=== PATIENT | male | born 1980 | race Caucasian/White ===

== ENCOUNTER 2018-08-27 10:29 | Emergency (ER) | payer MEDICAID ==
[~2018-08-27] VITALS: Wt 63.4 kg
[2018-08-27] MEDS ORDERED: ONDANSETRON 4 MG INJ IV STA (11:00)
[2018-08-27] MEDS ORDERED: KETOROLAC 15 MG INJ IV STA (11:00)
--- NOTE | 2018-08-27 11:06 | ERD ---
ER Documentation Chief Complaint Chief Complaint RT SIDED AP X 1 HOUR WITH N/V HPI 37-year-old male is complaining of right flank pain that radiates to the right lower quadrant times 3 hours. Patient is not reporting right testicular pain. Patient states that he is feeling nauseous, but has not vomited. He had not be able to urinate for the last 3 hours. Denies history of kidney stones. Denies fever or chills. ROS All systems reviewed and are negative except as per history of present illness. Medications Home Meds Active Scripts Ondansetron (Ondansetron Odt) 4 Mg Tab.rapdis, 4 MG PO Q6H PRN for NAUSEA AND/OR VOMITING, #10 TAB Prov:JOSEPH SPANN. LICENSING REPRESENTATIVE 08/27/18 Hydrocodone/Acetaminophen ([place] 5-325 Tablet) 1 Each Tablet, 1 TAB PO Q6H PRN for PAIN, #5 TAB Prov:JOSEPH SPANN. LICENSING REPRESENTATIVE 08/27/18 Ibuprofen* (Motrin*) 600 Mg Tab, 600 MG PO Q6H PRN for PAIN AND OR ELEVATED TEMP, #30 TAB Prov:JOSEPH SPANN. LICENSING REPRESENTATIVE 08/27/18 PMhx/Soc Medical and Surgical Hx: pt denies Medical Hx, pt denies Surgical Hx Hx Alcohol Use: No Hx Substance Use: No Smoking Status: Never smoker Physical Exam Vitals Vital Signs Date Temp Pulse Resp B/P (MAP) Pulse Ox O2 O2 Flow FiO2 Time Delivery Rate 08/27/18 98.9 78 14 115/56 100 Room Air 13:18 (75) 08/27/18 97.4 62 18 115/73 100 10:32 (87) Physical Exam General: Well-developed, well-nourished, conscious and coherent, in no dist ress. Patient is now actively vomiting Skin: Warm and dry without rash, good texture and turgor Head: Normocephalic without evidence of trauma Chest: Normal AP diameter. Good expansion without retractions. Nontender. Lungs are clear to auscultate bilaterally with good tidal volume Heart: Regular rate and rhythm. No murmur, rub, or gallops heard Abdomen: Soft and nontender without masses, guarding, or rebound. Bowel sounds are active. No hepatosplenomegaly Back: Without spinal tenderness, mild right CVA tenderness : Uncircumsized male. Penis normal, no penile discharge. Normal scrotum, no mass noted. No inguinal hernia. Cremasteric reflex normal Extremities: Full range of motion. Good strength bilaterally. No erythema, ecchymosis, or edema. Peripheral pulses are intact. Sensation intact Neuro: Alert and oriented 4, GCS 15. Result Diagram: 08/27/18 1113 08/27/18 1113 Results 24 hrs Laboratory Tests Test 08/27/18 11:09 08/27/18 11:13 Urine Color SAMIR Urine Clarity CLOUDY Urine pH 8.0 Urine Specific [place] 1.020 Urine Ketones NEGATIVE mg/dL Urine Nitrite NEGATIVE mg/dL Urine Bilirubin NEGATIVE mg/dL Urine Urobilinogen NEGATIVE mg/dL Urine Leukocyte Esterase NEGATIVE Harjinder/ul Urine Microscopic RBC > 182 /HPF Urine Microscopic WBC > 182 /HPF Urine Mucus MANY /HPF Urine Yeast (Budding) FEW /HPF Urine Hemoglobin 2+ mg/dL Urine Glucose NEGATIVE mg/dL Urine Total Protein 3+ mg/dl White Blood Count 12.5 10^3/ul Red Blood Count 4.98 10^6/ul Hemoglobin 15.0 g/dl Hematocrit 44.4 % Mean Corpuscular Volume 89.2 fl Mean Corpuscular Hemoglobin 30.1 pg Mean Corpuscular Hemoglobin Concent 33.8 g/dl Red Cell Distribution Width 12.8 % Platelet Count 244 10^3/UL Mean Platelet Volume 10.4 fl Immature Granulocytes % 0.400 % Neutrophils % 78.2 % Lymphocytes % 16.3 % Monocytes % 4.5 % Eosinophils % 0.2 % Basophils % 0.4 % Nucleated Red Blood Cells % 0.0 /100WBC Immature Granulocytes # 0.050 10^3/ul Neutrophils # 9.7 10^3/ul Lymphocytes # 2.0 10^3/ul Monocytes # 0.6 10^3/ul Eosinophils # 0.0 10^3/ul Basophils # 0.1 10^3/ul Nucleated Red Blood Cells # 0.0 10^3/ul Sodium Level 142 mmol/L Potassium Level 3.9 mmol/L Chloride Level 103 mmol/L Carbon Dioxide Level 29 mmol/L Anion Gap 10 Blood Urea Nitrogen 11 mg/dl Creatinine 0.84 mg/dl Est Glomerular Filtrat Rate mL/min > 60 mL/min Glucose Level 123 mg/dl Calcium Level 9.3 mg/dl Total Bilirubin 0.6 mg/dl Direct Bilirubin 0.00 mg/dl Indirect Bilirubin 0.6 mg/dl Aspartate Amino Transf (AST/SGOT) 35 IU/L Alanine Aminotransferase (ALT/SGPT) 30 IU/L Alkaline Phosphatase 85 IU/L Total Protein 8.2 g/dl Albumin 4.6 g/dl Globulin 3.60 g/dl Albumin/Globulin Ratio 1.27 Lipase 64 U/L Current Medications Medications Dose Sig/Hector Start Time Status Last (Trade) Ordered Route PRN Stop Time Admin Dose Reason Admin Ondansetron 4 mg ONCE STAT 08/27/18 DC 08/27/18 HCl (Zofran IV 11:00 11:12 Inj) 08/27/18 11:02 Ketorolac 15 mg ONCE STAT 08/27/18 DC 08/27/18 Tromethamine IV 11:00 11:13 (Toradol) 08/27/18 11:02 PROCEDURE: US Scrotum. CLINICAL INDICATION: Pain, swelling TECHNIQUE: Multiple sonographic images of the scrotal region were obtained utilizing a linear array transducer with grayscale and color-flow and a Doppler imaging. The images were reviewed on a high-resolution PACS workstation. COMPARISON: No prior studies are available for comparison. FINDINGS: The right testicle is well visualized and has a normal echotexture. No focal areas of abnormal echogenicity are visualized. The right testicle measures 4.9 x 2.1 x 2.8 cm. There is normal color-flow. The right epididymis is visualized and unremarkable in appearance. There is normal color-flow. The left testicle is well visualized and has a normal echotexture. No focal a reas abnormal echogenicity are visualized. The left testicle measures 3.7 x 2.2 x 2.4 cm. There is normal color-flow. The left epididymis is visualized and is unremarkable in appearance. There is normal color-flow. There is a moderate right hydrocele and a small left hydrocele. RPTAT: AA IMPRESSION: Moderate right hydrocele and small left hydrocele. .Napoleon Bran MD, Date Time Electronically viewed and signed by .Napoleon Bran MD, on 08/27/2018 12:08 .S/ CC: JOSEPH SPANN LICENSING REPRESENTATIVE PROCEDURE: Retroperitoneal US. CLINICAL INDICATION: Flank pain TECHNIQUE: Multiple sonographic images of the kidneys and retroperitoneum were obtained. The images were reviewed on a PACS workstation. COMPARISON: No prior studies are available for comparison. FINDINGS: The kidneys are normal in size, contour, cortical thickness and cortical echogenicity. The right kidney measures 10.6 cm. The left kidney measures 9.4 cm. No kidney stones are visualized. There is no evidence for hydronephrosis. There is mild fullness of the right renal pelvis versus a parapelvic cyst. The urinary bladder is partially decompressed and not well seen. The prostate is normal in size and measures 2.8 x 2.9 x 3.4 cm, with a volume of 14 ml. RPTAT: AA IMPRESSION: Mild fullness of the right renal pelvis versus a parapelvic cyst measuring 1.3 cm. Otherwise unremarkable. .Napoleon Bran MD, MD Date Time Electronically viewed and signed by .Napoleon Bran MD, MD on 08/27/2018 11:56 .S/ CC: JOSEPH SPANN LICENSING REPRESENTATIVE PROCEDURE: CT ABDOMEN AND PELVIS WITHOUT CONTRAST. CLINICAL INDICATION: Right lower quadrant pain TECHNIQUE: CT scan of the abdomen and pelvis without contrast was performed on a multidetector high-resolution CT scanner. The patient was scanned without intravenous contrast. Coronal and sagittal reformatted images were obtained from the axial source images. Images were reviewed on a high-resolution PACS workstation. The total exam CTDI equals 6.2 mGy and the total exam DLP equals 332 mGy-cm. One or more of the following dose reduction techniques were used: Automated exposure control. Adjustment of the mA and/or kV according to patient size. Use of iterative reconstruction technique. DICOM images are available COMPARISON: None FINDINGS: CT abdomen: The lung bases are clear. The heart size is within normal limits. There is no significant pericardial effusion. Hepatic morphology is within normal limits. No gross contour deforming masses. The gallbladder is within normal limits. No evidence of intrahepatic or ext rahepatic biliary dilatation. The spleen and pancreas are within normal limits. Both adrenal glands are within normal limits. Both kidneys are normal anatomic position. There is right-sided hy droureteronephrosis with right perinephric fatty stranding secondary to a 5 mm stone within the right mid ureter. The left kidney is unremarkable. No evidence of obstructive uropathy. The visualized GI tract demonstrate normal caliber loops of small large bowel. No this of bowel obstruction. The appendix is within normal limits. The unenhanced aorta is unremarkable. No significant retroperitoneal lymphadenopathy. CT pelvis: The bladder is within normal limits. Prostate is normal size. Rectosigmoid colon demonstrates stool. No significant free fluid. No same pelvic lymphadenopathy. The visualized osseous structures, appears to be within normal limits. IMPRESSION: 1. MILD RIGHT-SIDED HYDROURETERONEPHROSIS WITH RIGHT PERINEPHRIC FAT STRANDING SECONDARY TO A 5 MM STONE WITHIN THE RIGHT MID URETER. 2. The left kidney is unremarkable without evidence of obstructive uropathy. 3. No evidence of bowel obstruction. The appendix is within normal limits. RPTAT: AAPP Physician Татьяна Date Time Electronically viewed and signed by Physician Татьяна on 08/27/2018 12:33 JL/ CC: JOSEPH SPANN LICENSING REPRESENTATIVE Procedures/MDM 37-year-old male presents the ED with right flank pain that radiates to the right lower quadrant and right testicles. Toradol and Zofran given to the patient in the ED. Patient reports pain relief after Toradol. CBC: no e/o of severe anemia, mild leukocytosis 12.5 is noted. CMP: no e/o severe acidosis, alkalosis, renal failure, diabetic ketoacidosis, liver disease Lipase: no e/o pancreatitis Urine: Large amount of RBC and WBC, negative leukocyte, negative bacteria. No e/o acute infection Ultrasound of the scrotum is unremarkable. Renal ultrasound showed mild right hydronephrosis. CT abdomen and pelvis without IV contrast was obtained, which showed a 5 mm stone in the right mid ureter, appendix appears normal. Patient symptoms are caused by urolithiasis. He does have mild right hydro- nephrosis, but creatinine is within normal limits. No sign of appendicitis. Patient has no dysuria, I doubt your tract infection, or septic stone. Patient informed that the testing and imaging results, and advised to follow-up with PCP for urology referral. Patient also given information for Dr. Mai, the urologist affiliated with the hospital. Patient also advised to return to the ED if he has a fever or unable to urinate. Patient appears well, stable for discharge and outpatient management. Medical decision making shared with patient and family. Education provided to patient and family. Patient and family expressed understanding of the plan. Medications on discharge: Ibuprofen, Zofran, [place]. Follow-up: Primary care provider in 2-3 days or return to ED if worse. The case was reviewed and discussed with Dr. Nolan, who agrees with the plan of care. Disclaimer: Inadvertent spelling and grammatical errors are likely due to EHR/dictation software use and do not reflect on the overall quality of patient care. Also, please note that the electronic time recorded on this note does not necessarily reflect the actual time of the patient encounter. Departure Diagnosis: Primary Impression: Abdominal pain Condition: JOSEPH Cordero NP Aug 27, 2018 11:06
[2018-08-27] MEDS ORDERED: IBUP-1542 PO (12:56)
[2018-08-27] MEDS ORDERED: ONDA4TAB14 PO (13:05)
[2018-08-27] MEDS ORDERED: HYDR-4011 PO (13:05)
[2018-08-27 13:18] VITALS: BP 115/56; PULSE 78; RESP 14
== END 2018-08-27 13:18 | disposition home or self-care (01) ==
LOC: FTE 10:29
DX: R10.31 Right lower quadrant pain (principal); R40.2412 Glasgow coma scale score 13-15, at arrival to emergency department; R11.2 Nausea with vomiting, unspecified
CPT/HCPCS: 74176; 76775; 76870; 80053; 81001; 83690; 85025; J1885; J2405; 36415; 96374; 96375